=== PATIENT | male | born 1945 | race American Indian/Alaskan Native ===

== ENCOUNTER 2021-09-26 06:58 | Day surgery (SDC) | payer MEDICARE ==
[2021-09-26] MEDS ORDERED: LACTATED RINGERS 1,000 ML ONE (07:18)
[2021-09-26] MEDS ORDERED: ceFAZolin/STERILE WATER 2 GM/20 ML SYRINGE IV NR (08:00)
[2021-09-26] MEDS ORDERED: GENTAMICIN/NS 80 MG/100 ML 100 ML IV SCH (08:00)
[2021-09-26] MEDS ORDERED: HYDROmorphone 1 MG/1 ML INJ IV PRN ×2 (08:20)
[2021-09-26] MEDS ORDERED: ONDANSETRON 4 MG/2 ML INJ IV PRN (08:20)
--- NOTE | 2021-09-26 08:21 | Anesthesia Consultation ---
Anesthesia Consult and Med Hx Date of service: 09/26/21 - Airway Anesthetic Teeth Evaluation: Crowns ROM Head & Neck: Adequate Mental/Hyoid Distance: Adequate Mallampati Class: Class II Intubation Access Assessment: Good - Pre-Operative Health Status ASA Pre-Surgery Classification: ASA2 Proposed Anesthetic Plan: General - Pulmonary Hx Smoking: No Hx Respiratory Symptoms: No (+2FS) Hx Sleep Apnea: No (WANDA PRE SCREEN LOW RISK) - Cardiovascular System Hx Hypertension: No - Central Nervous System Hx Psychiatric Problems: No - Hematic Hx Anemia: No Hx Sickle Cell Disease: No - Other Systems Hx Cancer: No Hx Obesity: No
--- NOTE | 2021-09-26 08:21 | Anesthesia Day of Surgery ---
Anesthesia Day of Surgery - Day of Surgery Patient Examined: Yes Patient H&P Reviewed: Yes Patient is NPO: Yes
[2021-09-26] MEDS ORDERED: LACTATED RINGERS 1,000 ML IV SCH (08:30)
[2021-09-26] MEDS ORDERED: propofoL 200 MG/20 ML VIAL IV ONE (09:43)
[2021-09-26] MEDS ORDERED: fentaNYL 100 MCG/2 ML INJ ONE (09:43)
[2021-09-26] MEDS ORDERED: iohexoL 50 ML in SODIUM CHLORIDE 0.9% 50 ML IR ONE (10:40)
[2021-09-26] MEDS ORDERED: WATER FOR IRRIG STERILE 2000 ML IR ONE (10:40)
[2021-09-26] MEDS ORDERED: ONDANSETRON 4 MG/2 ML INJ ONE (10:42)
[2021-09-26] MEDS ORDERED: LIDOCAINE MPF (2%) 20 MG/1 ML VIAL 5 ML ONE (10:45)
--- NOTE | 2021-09-26 10:49 | Short Stay Summary ---
Short Stay Documentation Date of service: 09/26/21 - History H&P: obtained from office - Allergies and Medications Current Medications: Allergies lactose Adverse Reaction (Verified 09/19/21 17:34) GI UPSET Home Medications Medication Instructions Recorded Confirmed Last Taken Type Netarsudil Mesylat/Latanoprost 2.5 ml OP DAILY 09/19/21 09/19/21 Unknown History [[facility] 0.02%-0.005% Eye Drp] Active Medications Cefazolin Sodium (Cefazolin/Sterile Water 2 Gm/20 Ml Syringe) 2 gm IV PREOP NR Stop: 09/26/21 23:59 Hydromorphone HCl (Hydromorphone 1 Mg/1 Ml Inj) 0.25 mg IV Q10MIN PRN PRN Reason: Pain, Moderate (4-6) Stop: 09/26/21 23:00 Hydromorphone HCl (Hydromorphone 1 Mg/1 Ml Inj) 0.5 mg IV Q10MIN PRN PRN Reason: Pain , Severe (7-10) Stop: 09/26/21 23:00 Gentamicin Sulfate/Sodium Chloride (Gentamicin/Ns 80 Mg/100 Ml) 100 mls @ 200 mls/hr IV PREOP JONO Stop: 09/26/21 23:59 Lactated Ringer's (Lactated Ringers) 1,000 mls @ 125 mls/hr IV DIRECT JONO Ondansetron HCl (Ondansetron 4 Mg/2 Ml Inj) 4 mg IV ONCE PRN PRN Reason: Nausea And Vomiting Stop: 09/26/21 12:00 - Brief post op/procedure progress note Date of procedure: 09/26/21 Pre-op diagnosis: elevated psa Post-op diagnosis: same Procedure: cysto, rpg, pus 35cc, prostate bx Anesthesia: GETA Surgeon: EMMA GARLAND Pathology: list (prostate cores) Specimen disposition: to lab Condition: stable - Hospital course Hospital course: [facility]or voss, post op info on chart - Disposition Condition at discharge: Stable Disposition: 01 HOME / SELF CARE / HOMELESS Short Stay Discharge Plan Follow up with: PRIMARY CARE, [Primary Care Provider] - 7 Days
--- NOTE | 2021-09-26 11:23 | Ultrasound Report ---
Transrectal Ultrasound HISTORY: ELEVATED PSA. TECHNIQUE: Grayscale and color Doppler imaging performed. COMPARISON: None FINDINGS: Transrectal ultrasound guidance was provided during prostate biopsy by urology. Prostate vo lume measures 31 cc. IMPRESSION: Successful ultrasound-guided prostate biopsy Signer Name: Jacob Stone Jr, MD Signed: 09/26/2021 11:09 AM Workstation Name: [id number]
--- NOTE | 2021-09-26 11:54 | Fluoroscopy Report ---
FLUOROSCOPY RETROGRADE UROGRAPHY INDICATION: ELEVATED PSA. COMPARISON: None. IMPRESSION: 6.5 seconds of fluoroscopy time was provided by radiology during retrograde pyelograms b y urology. 4 fluoroscopic images are presented. The renal collecting systems appear unremarkable bila terally. No filling defect or abnormal dilatation is demonstrated. Please correlate with the procedur al report as needed. Signer Name: Jacob Stone Jr, MD Signed: 09/26/2021 11:50 AM Workstation Name: [id number]
--- NOTE | 2021-09-26 12:27 | Post Anesthesia Evaluation ---
- Post Anesthesia Evaluation Patient Participated: Yes Airway Patent: Yes Stable Respiratory Function: Yes Nausea/Vomiting: No Temp > 96.8F: Yes Pain Manageable: Yes Adequeate Hydration: Yes Anesthesia Complications: No Block Receding Appropriately: Not Applicable Patient on Ventilator: No
[2021-09-26 12:28] VITALS: BP 156/79
--- NOTE | 2021-09-26 12:52 | Operative Report ---
DATE OF SURGERY: 09/26/2021 PREOPERATIVE DIAGNOSIS: Elevated PSA of 10. POSTOPERATIVE DIAGNOSIS: Elevated PSA of 10. PROCEDURES: Cystoscopy, bilateral retrograde pyelograms, prostate ultrasound and biopsy. SURGEON: Sushil Baird MD ANESTHESIA: General. ESTIMATED BLOOD LOSS: Minimal. FLUIDS: Crystalloid. COMPLICATIONS: No complications. INDICATIONS: This patient is a 75-year-old gentleman seen in the office for an elevated PSA. He had previous biopsy in 2020, which was negative. His PSA continued to rise. MRI revealed two anterior lesions, questionable for cancer. We discussed fusion versus ultrasound, possible saturation biopsy. He agreed to proceed with surgical intervention. DESCRIPTION OF PROCEDURE: The patient was taken to the operative suite and placed in a supine position. After adequate general anesthesia, placed in a dorsal lithotomy position and prepped and draped in a sterile fashion. Pancystourethroscopy was performed with a 22-Mongol[place] Storz cystoscope, no urethral abnormalities. His prostate did display some moderate trilobar obstruction. Bladder with no tumors or stones. Both ureteral orifices in normal position. He had some diffuse mild trabeculation. Bilateral retrograde pyelograms were obtained with an 8-Mong[place] Emporium catheter and 8 mL of contrast. No filling defects or obstruction. Next, a transrectal ultrasound was performed. Biplanar measurements were taken. The patient was noted to have a 35-gram gland. On ultrasound, could not appreciate both lesions; however, there was an area on the left side that appeared to be consistent with an MRI lesion, which was biopsied as part of the left mid-core. A 12-core biopsy was taken for the base, mid and apex. The patient tolerated the procedure well. Rectal exam was benign. His bladder was drained. He was extubated and taken to recovery room. He will go home on B[place] and [place] and follow up in the office. TID: [id number] RECEIPT: [id number] [facility]
== END 2021-09-26 12:05 | disposition home or self-care (01) ==
LOC: OR 06:58
PROVIDERS: ATTEND Urology
DX: R97.20 Elevated prostate specific antigen [PSA] (principal); C61 Malignant neoplasm of prostate; N40.0 Benign prostatic hyperplasia without lower urinary tract symptoms; H40.9 Unspecified glaucoma; Z20.822 Contact with and (suspected) exposure to COVID-19; Z88.8 Allergy status to other drugs, medicaments and biological substances; Z79.899 Other long term (current) drug therapy; Z98.49 Cataract extraction status, unspecified eye; Z98.890 Other specified postprocedural states
CPT/HCPCS: 52005; 55700; 74420; 76872; 88305; C1758; J0690; J1580; J2405; J2704; J3010; J3490; J7120; Q9967; U0003

== ENCOUNTER 2021-11-06 07:37 | Outpatient (CLI) | payer MEDICARE ==
--- NOTE | 2021-11-06 09:07 | Cat Scan Report ---
CT ABDOMEN AND PELVIS WITHOUT CONTRAST INDICATION / CLINICAL INFORMATION: MALIGNANT NEOPLASM OF PROSTATE. TECHNIQUE: Axial CT images were obtained through the abdomen and pelvis without IV contrast. Sagittal and torres l reformatted images. All CT scans at this location are performed using CT dose reduction for ALARA b y means of automated exposure control. COMPARISON: None available. FINDINGS: LOWER CHEST: No significant abnormality. LIVER: No significant abnormality. GALLBLADDER: There is a solitary 1 cm gallstone in the gallbladder. No abnormal dilatation or inflamm ation. BILE DUCTS: No significant abnormality. PANCREAS: No significant abnormality. SPLEEN: No significant abnormality. ADRENALS: No significant abnormality. RIGHT KIDNEY and URETER: There are a few scattered cysts in the right kidney. 2 of the cysts are hype rdense consistent with hemorrhagic cysts. The largest cyst measures 3.7 cm at the lower pole with int ernal density measuring 48 Hounsfield units. No nephrolithiasis or hydronephrosis. LEFT KIDNEY and URETER: 1 cm hyperdense cyst is noted in the left kidney near mid pole. Subcentimeter hyperdense cyst is noted near the superior pole. No nephrolithiasis or hydronephrosis. STOMACH and SMALL BOWEL: No significant abnormality. COLON: There is mild diverticulosis of the distal colon. No evidence for acute inflammation, obstruct ion or obvious mass. APPENDIX: No significant abnormality. PERITONEUM: No free fluid. No free air. No fluid collection. LYMPH NODES: No pathologic adenopathy is detected. AORTA and ARTERIES: No significant abnormality. IVC and VEINS: No significant abnormality. URINARY BLADDER: No significant abnormality. REPRODUCTIVE ORGANS: The prostate gland is mildly enlarged measuring 5.3 cm in diameter. No discrete mass. ADDITIONAL FINDINGS: Tiny umbilical hernia containing fat. SKELETAL SYSTEM: No suspicious bony lesion is detected. Moderate discogenic DJD is identified at L5-S 1. IMPRESSION: No evidence for metastatic disease in the abdomen or pelvis on noncontrast CT. Gallstone. Bilateral renal cysts. Some of these appear hyperdense consistent with hemorrhagic cysts. Consider co rrelation with ultrasound if needed to ensure cystic nature. Mild prostatomegaly. Tiny umbilical hernia containing fat. Moderate degenerative disc disease at L5-S1. Signer Name: Jacob Stone Jr, MD Signed: 11/06/2021 9:03 AM Workstation Name: [id number]
--- NOTE | 2021-11-06 11:42 | Nuclear Medicine Report ---
NUCLEAR MEDICINE BONE SCAN, WHOLE BODY INDICATION: C61 PROSTATE CA. PSA 8.3 TECHNIQUE: 26 mCi of Tc-99m MDP were injected IV. Whole body images were obtained. COMPARISON: CT abdomen pelvis 11/06/2021. FINDINGS: Skeletal Structures: No focal areas of asymmetric activity. Mild, relatively symmetric, periarticular activity which is likely degenerative posterior elements lumbar spine corresponding to moderate face t degenerative changes on CT. Mild increased tracer activity right knee medial femoral tibial compart ment and right hip likely degenerative as well.. Skeletal Lesions: None. Soft Tissues: Normal. Kidneys: Normal, symmetric activity. Additional Findings: None. IMPRESSION: 1. No scintigraphic evidence for skeletal metastatic disease.. Signer Name: Niels Wu MD Signed: 11/06/2021 11:31 AM Workstation Name: [id number]
== END 2021-11-06 07:38 | disposition home or self-care (01) ==
LOC: NM 07:37
PROVIDERS: ATTEND Urology
DX: C61 Malignant neoplasm of prostate (principal); N28.1 Cyst of kidney, acquired; M51.37 Other intervertebral disc degeneration, lumbosacral region
CPT/HCPCS: 74176; 78306; A9503